=== PATIENT | female | born 1965 | race American Indian/Alaskan Native ===

== ENCOUNTER 2019-08-27 02:50 | Emergency (ER) | payer SELFPAY ==
--- NOTE | 2019-08-27 07:00 | Emergency Department Report ---
ED General Adult HPI - General Chief complaint: Fever Stated complaint: FEVER PUI?: Yes Time Seen by Provider: 08/27/19 06:12 Source: patient, EMS ( EMS documentation not available at time of chart dictation ), RN notes reviewed Mode of arrival: Stretcher Limitations: Other (Patient is disorganized and a poor historian and is not forthcoming) - History of Present Illness Initial comments: This is a 54-year-old female. She is not known to myself previously. Apparently, her past medical history includes COPD, HIV, and schizophrenia. Please note that for the entire history and physical examination, I had on complete personal protective equipment. History is mostly obtained from collateral information from nursing staff. Apparently, the patient was recently seen at [facility] for psychiatric reasons, placed on a 1013, and was scheduled to be transported to [facility] on the aforementioned 1013 for suicidality. Apparently, she had a fever of 101.3 degrees, and was saturating at 92% on room air. Upon my initial evaluation, the patient is sleeping comfortably on her left hand side. She arouses easily, and tells me that she has "side pain" she points to her bilateral lower quadrants indicating where her pain is. She does not describe the nature of her pain. She does not describe exacerbating or relieving factors. The patient will not answer further open-ended questions. She would not comment on the presence of chest pain, shortness of breath, headache, neck pain, or suicidality. She is asking to eat. She is not accompanied by friends or family at this time. No additional information is available at this time. Old medical records are not available at this time. -: unknown Radiation: abdomen Quality: other Consistency: other Improves with: other Worsens with: other Associated Symptoms: other - Related Data Previous Rx's Medication Instructions Recorded Last Taken Type Acetaminophen [Tylenol] 650 mg PO Q6HR PRN #20 capsule 08/27/19 Unknown Rx Albuterol Sulfate [Proair 90 mcg IH Q6HR PRN #1 aer.pw.bas 08/27/19 Unknown Rx Digihaler] Amoxicillin/Potassium Clav 1 each PO BID #19 tablet 08/27/19 Unknown Rx [Augmentin 875-125 Tablet] Ondansetron (Nf) [Zofran TAB] 4 mg PO Q6HR PRN #10 tablet 08/27/19 Unknown Rx Allergies Allergy/AdvReac Type Severity Reaction Status Date / Time No Known Allergies Allergy Unverified 08/27/19 03:24 ED Review of Systems ROS: Stated complaint: FEVER Other details as noted in HPI Comment: Unobtainable due to pts medical conditions (Patient appears to be withdrawn, psychotic and disorganized.) Gastrointestinal: abdominal pain ED Past Medical Hx - Past Medical History Previous Medical History?: Yes Hx Psychiatric Treatment: Yes (Schizophrenia) Hx COPD: Yes Hx HIV: Yes - Surgical History Past Surgical History?: No - Social History Smoking Status: Current Every Day Smoker Substance Use Type: Alcohol, Other - Medications Home Medications: Home Medications Medication Instructions Recorded Confirmed Last Taken Type Acetaminophen [Tylenol] 650 mg PO Q6HR PRN #20 capsule 08/27/19 Unknown Rx Albuterol Sulfate [Proair 90 mcg IH Q6HR PRN #1 aer.pw.bas 08/27/19 Unknown Rx Digihaler] Amoxicillin/Potassium Clav 1 each PO BID #19 tablet 08/27/19 Unknown Rx [Augmentin 875-125 Tablet] Ondansetron (Nf) [Zofran TAB] 4 mg PO Q6HR PRN #10 tablet 08/27/19 Unknown Rx ED Physical Exam - General Limitations: Other (Patient not forthcoming in history. Patient will not answer most open ended her close ended questions) General appearance: in no apparent distress - Head Head exam: Present: atraumatic, normocephalic - Eye Eye exam: Present: normal appearance, EOMI - ENT ENT exam: Present: normal exam, mucous membranes moist, normal external ear exam - Neck Neck exam: Present: normal inspection, full ROM. Absent: tenderness, meningismus - Respiratory Respiratory exam: Present: decreased breath sounds. Absent: respiratory distress, wheezes, rales, rhonchi, stridor - Cardiovascular Cardiovascular Exam: Present: regular rate, normal rhythm, normal heart sounds. Absent: bradycardia, tachycardia, irregular rhythm, systolic murmur, diastolic murmur, rubs, gallop - GI/Abdominal GI/Abdominal exam: Present: soft, normal bowel sounds. Absent: distended, tenderness, guarding, rebound, rigid, pulsatile mass - Extremities Exam Extremities exam: Present: normal inspection, full ROM, other (2+ pulses noted in the bilateral upper and lower extremities. There is no palpable cord. negative Homans sign. Muscular compartments are soft. The pelvis is stable.). Absent: pedal edema, calf tenderness - Back Exam Back exam: Absent: tenderness, CVA tenderness (R), CVA tenderness (L), paraspinal tenderness, vertebral tenderness - Neurological Exam Neurological exam: Present: alert (The patient is awake. The patient moves 4 extremities. There are no meningeal signs. The patient follows some commands. There is no facial droop. The patient does not speak in complete sentences when she elects to answer. Detailed neurologic examination not possible secondary to lack of patient cooperation) - Psychiatric Psychiatric exam: Present: flat affect - Skin Skin exam: Present: warm, dry, intact, normal color. Absent: rash ED Course Vital Signs 08/27/19 08/27/19 08/27/19 03:07 03:12 03:22 Temperature 100.5 F H Pulse Rate 91 H Respiratory 18 20 Rate Blood Pressure 137/88 Blood Pressure [Right] O2 Sat by Pulse 93 94 Oximetry 08/27/19 08/27/19 08/27/19 06:39 14:38 16:15 Temperature 98.6 F 100.4 F H Pulse Rate 77 Respiratory 18 18 Rate Blood Pressure Blood Pressure 116/57 [Right] O2 Sat by Pulse 93 Oximetry 08/27/19 08/27/19 08/27/19 18:56 19:04 21:18 Temperature 99.4 F 99.4 F 98.8 F Pulse Rate 69 Respiratory 18 16 Rate Blood Pressure Blood Pressure 127/68 [Right] O2 Sat by Pulse 97 100 Oximetry - Reevaluation(s) Reevaluation #1: 08/27/19 07:16 Differential diagnosis, including but not limited to: COVID-19, bacteremia, viremia, pneumonia, COPD, intra-abdominal infection, schizophrenia, psychosis Assessment and plan: 54-year-old female who was reportedly recently medically cleared from another emergency room, transported to receiving psychiatric facility, found to be febrile, and borderline hypoxic. Patient febrile here in the emergency room, and also minimally hypoxic. Place patient on 1013, obtain screening labs, x-ray of the chest, noncontrast CT scan of the belly, patient on supplemental oxygen, titrate to 94% on O2 supplementation, obtain psychiatric consultation, and reassess. Patient has no meningeal signs, neck is supple, this is unlikely to be meningitis and/or encephalitis. 08/27/19 12:10 Reevaluation #2: 08/27/19 12:10 Patient resting comfortably at this time, and in no acute distress. She ate a full meal without difficulty. CT scan of the abdomen pelvis shows no pulmonary pathology. CT scan did suggest possible early colitis. She has not had any diarrhea while she is been here. Urinalysis pending. 08/27/19 12:10 Reevaluation #3: 08/27/19 14:51 Laboratory studies are reviewed and appreciated. I contacted our hospital physician, Dr. Luo, to arrange admission, given acute febrile illness. We discussed the patient's history, physical, laboratory studies and imaging studies. He indicates the patient does not meet criteria for admission or hospitalization. I do agree with this, as if the patient were not acutely psychotic and on a 1013, I would discharge her home with oral antibiotics, medications and supportive care, with a plan for self-care and observation. However, given her 1013 status, I cannot clear the patient for psychiatric hospitalization at this time. I also discussed the case with our correctional officer chief, Dr. Sandro Rojas. We discussed the patient's history, physical, pertinent laboratory studies and imaging studies. He authorizes and recommends administratively that the patient may remain in this ER at least overnight, pending results of COVID testing. If patient test positive, we would consider admission for the aforementioned. If patient tests negative, and clinically convalesces well, we would consider the patient suitable for psychiatric placement. Therefore, the patient will remain in this department overnight, pending COVID results. In addition, we will continue maintenance medications. Nursing team has been requested to reconcile patient's medications. Clinically do not suspect colitis, but we will cover with Augmentin. 08/27/19 15:20 COVID test is negative. At this point in time, the patient does not appear to have an immediate medical contraindication to psychiatric hospitalization, consultation and placement, assuming serum aspirin level within normal limits will transfer care to Dr Keagan Veliz to follow up on aspirin level and d/c to psych clearance if negative 08/27/19 15:23 ED Medical Decision Making - Lab Data Result diagrams: 08/27/19 07:24 08/27/19 07:24 Vital Signs 08/27/19 08/27/19 08/27/19 03:07 03:12 03:22 Temperature 100.5 F H Pulse Rate 91 H Respiratory 18 20 Rate Blood Pressure 137/88 Blood Pressure [Right] O2 Sat by Pulse 93 94 Oximetry 08/27/19 06:39 Temperature 98.6 F Pulse Rate 77 Respiratory 18 Rate Blood Pressure Blood Pressure 116/57 [Right] O2 Sat by Pulse 93 Oximetry - EKG Data -: EKG Interpreted by [facility] EKG shows normal: sinus rhythm Rate: normal - EKG Data When compared to previous EKG there are: previous EKG unavailable 08/27/19 10:54 There is no prior EKG available for comparison. Sinus rhythm, 70 bpm, normal axis, normal intervals, poor R wave progression, T wave inversion V2. The EKG is abnormal. The EKG is not a STEMI. No prior is available for comparison. - Radiology Data Radiology results: pending, report reviewed, image reviewed X-ray of the chest is negative for acute disease Print Report Referring Physician: HERMELINDA VITAL Patient Name: ADDIS HESTER Date of : 1965 Sex: Female Report Date: 2019-08-27 Report Status: Finalized Findings [facility] [address] [place] [address] Cat Scan Report Signed Patient: ADDIS HESTER MR#: [id number] : 1965 Acct:[id number] Age/Sex: 54 / F ADM Date: 08/27/19 Loc: ED Attending Dr: Ordering Physician: HERMELINDA VITAL MD Date of Service: 08/27/19 Procedure(s): CT abdomen pelvis wo con Accession Number(s): [id number] cc: HERMELINDA VITAL MD CT ABDOMEN AND PELVIS WITHOUT CONTRAST HISTORY: lower abd pain fever. COMPARISON: None. TECHNIQUE: CT images of the abdomen and pelvis were obtained without administration of intravenous contrast. All CT scans at this location are performed using CT dose reduction for ALARA by means of automated exposure control. FINDINGS: Lungs/bones: There is mild bibasilar atelectasis. Degenerative changes are present in the spine and pelvis with no acute osseous abnormality identified. Abdomen/pelvis: The liver is mildly enlarged with no focal mass identified. The gallbladder, spleen, pancreas, adrenals, right kid roge, and proximal GI tract appear unremarkable. There is a simple cyst arising from the midpole the left kidney. Urinary bladder and reproductive organs are unremarkable with no pelvic free fluid. There is slight circumferential wall thickening along the distal descending colon extending to the proximal sigmoid colon without significant surrounding inflammation. No obstruction or free fluid. The appendix is normal. IMPRESSION: 1. Distal colonic findings as outlined above could represent a very early/mild colitis. No significant diverticular disease. No obstruction or abscess formation. Signer Name: Praveen Khalil MD Signed: 08/27/2019 11:51 AM Workstation Name: [id number] Transcribed By: ANTHONY Dictated By: Praveen Khalil MD Electronically Authenticated By: Praveen Khalil MD Signed Date/Time: 08/27/19 1151 DD/ 1132 TD/TT: Critical Care Time: Yes Critical care time in (mins) excluding proc time.: 35 Critical care attestation.: If time is entered above; I have spent that time in minutes in the direct care of this critically ill patient, excluding procedure time. ED Disposition Clinical Impression: Acute febrile illness, Acute abdominal pain, Psychosis Disposition: DC/TX-70 ANOTHER TYPE HLTHCARE Is pt being admited?: No Does the pt Need Aspirin: No Condition: Stable Additional Instructions: Take the medications as needed and directed. Make certain to self isolate, self quarantine, avoid exposure to the very elderly and very young. Advance diet as tolerated. Wash hands frequently, thoroughly and often. Please follow-up with your primary medical doctor within the next 5 to 7 days. Please return to the emergency room right away with new pain, worsening pain, migration of pain, projectile vomiting, change in mental status, confusion, inability to tolerate liquid feeds, new, worsened or different symptoms not present on the initial emergency room evaluation. Prescriptions: Amoxicillin/Potassium Clav [Augmentin 875-125 Tablet] 1 each PO BID #19 tablet Albuterol Sulfate [Proair Digihaler] 90 mcg IH Q6HR PRN #1 aer.pw.bas PRN Reason: Wheezing Acetaminophen [Tylenol] 650 mg PO Q6HR PRN #20 capsule PRN Reason: Fever >101 Ondansetron (Nf) [Zofran TAB] 4 mg PO Q6HR PRN #10 tablet PRN Reason: Nausea Referrals: NICCI REID MD [Staff Physician] - 3-5 Days
--- NOTE | 2019-08-27 08:00 | XRay Report ---
CHEST 1 VIEW 7:12 AM INDICATION / CLINICAL INFORMATION: Acute febrile illness. COMPARISON: None available. FINDINGS: SUPPORT DEVICES: None. HEART / MEDIASTINUM: The heart size and pulmonary vasculature are normal in LUNGS / PLEURA: No significant pulmonary or pleural abnormality. No pneumothorax. ADDITIONAL FINDINGS: No significant additional findings. IMPRESSION: No acute findings. I see no evidence of pneumonia. Signer Name: Cayden Olmedo MD Signed: 08/27/2019 7:56 AM Workstation Name: [id number]
[2019-08-27 08:14] LABS: Basophils % (Auto) 0.5 % (0.0-1.8); Eosinophils # (Auto) 0.1 K/mm3 (0.0-0.4); Hematocrit 50.8 % (30.3-42.9); Lymphocytes # (Auto) 1.5 K/mm3 (1.2-5.4); Lymphocytes % (Auto) 22.7 % (13.4-35.0); Mean Corpuscular HGB Conc 34 % (30-34); Mean Corpuscular Volume 90 fl (79-97); Monocytes # (Auto) 0.6 K/mm3 (0.0-0.8); Monocytes % (Auto) 8.8 % (0.0-7.3); Platelet Count 202 K/mm3 (140-440); Red Blood Count 5.64 M/mm3 (3.65-5.03); Red Cell Distribution Width 14.8 % (13.2-15.2)
[2019-08-27 08:49] LABS: C-Reactive Protein 2.8 mg/dL (0.00-1.30)
[2019-08-27 09:20] LABS: Alanine Aminotransferase 19 units/L (7-56); Albumin 3.4 g/dL (3.9-5); BUN/Creatinine Ratio 15; Blood Urea Nitrogen 9 mg/dL (7-17); Calcium 8.8 mg/dL (8.4-10.2); Hemolysis Index 5
[2019-08-27] MEDS ORDERED: LORazepam 2 MG/ML VIAL IM PRN (09:43)
[2019-08-27] MEDS ORDERED: HALOPERIDOL LACTATE 5 MG/1 ML INJ IM PRN (09:43)
--- NOTE | 2019-08-27 11:55 | Cat Scan Report ---
CT ABDOMEN AND PELVIS WITHOUT CONTRAST HISTORY: lower abd pain fever. COMPARISON: None. TECHNIQUE: CT images of the abdomen and pelvis were obtained without administration of intravenous co ntrast. All CT scans at this location are performed using CT dose reduction for ALARA by means of au tomated exposure control. FINDINGS: Lungs/bones: There is mild bibasilar atelectasis. Degenerative changes are present in the spine and pelvis with no acute osseous abnormality identified. Abdomen/pelvis: The liver is mildly enlarged with no focal mass identified. The gallbladder, spleen, pancreas, adrenals, right kidney, and proximal GI tract appear unremarkable. There is a simple cyst arising from the midpole the left kidney. Urinary bladder and reproductive organs are unremarkable with no pelvic free fluid. There is slight circumferential wall thickening along the distal descending colon extending to the pr oximal sigmoid colon without significant surrounding inflammation. No obstruction or free fluid. The appendix is normal. IMPRESSION: 1. Distal colonic findings as outlined above could represent a very early/mild colitis. No significan t diverticular disease. No obstruction or abscess formation. Signer Name: Praveen Khalil MD Signed: 08/27/2019 11:51 AM Workstation Name: [id number]
[2019-08-27 13:59] LABS: Mucus,Urine FEW /HPF
[2019-08-27 14:00] LABS: Bilirubin,Urine NEG (Negative); Blood,Urine NEG (Negative); Color,Urine Yellow (Yellow); Protein,Urine <15 mg/dL mg/dL (Negative)
[2019-08-27] MEDS ORDERED: AMOXICILLIN/K CLAV 875/125MG TAB PO ONE (14:38)
[2019-08-27] MEDS ORDERED: ACETAMINOPHEN 325 MG TAB PO PRN (14:38)
[2019-08-27] MEDS ORDERED: ALBUTEROL 2.5 MG/3 ML NEBU IH PRN (14:47)
[2019-08-27] MEDS ORDERED: ONDANSETRON 4 MG ODT TAB PO PRN (14:47)
[2019-08-27] MEDS: AMOXICILLIN/K CLAV 875/125MG TAB PO SCH ×2 (19:04→21:47)
[2019-08-27 21:19] VITALS: BP 127/68
== END 2019-08-27 22:08 | disposition other institution (70) ==
LOC: ED 02:50
DX: B34.9 Viral infection, unspecified (principal); F29 Unspecified psychosis not due to a substance or known physiological condition; R10.9 Unspecified abdominal pain; F20.9 Schizophrenia, unspecified; J44.9 Chronic obstructive pulmonary disease, unspecified; F17.200 Nicotine dependence, unspecified, uncomplicated
CPT/HCPCS: 36415; 71045; 74176; 80053; 81001; 82728; 82947; 83615; 83690; 83735; 84145; 85025; 85379; 86140; 87040; 87086; 93005; 99291; U0003; 80320; G0480

== ENCOUNTER 2019-11-30 14:25 | Emergency (ER) | payer SELFPAY ==
--- NOTE | 2019-11-30 14:37 | Emergency Department Report ---
Blank Doc - Documentation Documentation: This is a 54-year-old female that presents with SI. This initial assessment/diagnostic orders/clinical plan/treatment(s) is/are subject to change based on patient's health status, clinical progression and re- assessment by fellow clinical providers in the ED. Further treatment and workup at subsequent clinical providers discretion. Patient/guardians urged not to elope from the ED as their condition may be serious if not clinically assessed and managed. Initial orders include: 1- Patient sent to MAIN ED for further evaluation and treatment 2- director of intelligence was notified to have patient be brought back [facility]. 3- RN was notified to keep patient as close range and observation until room available 4- Patient presents with substantial risk of imminent harm to self, appears to be so unable to care for his/her own physical health and safety as to create an imminently life-endangering crisis, and has committed/expressed life endangering crisis to self. Due to this and other complaints, patient is put on psych hold.
[2019-11-30 15:10] LABS: Bacteria,Urine 1+ /HPF (Negative); Bilirubin,Urine NEG (Negative); Blood,Urine NEG (Negative); Color,Urine Yellow (Yellow); Mucus,Urine 1+ /HPF; Protein,Urine <15 mg/dL mg/dL (Negative)
[2019-11-30 15:13] LABS: Amphetamine Screen,Urine PRESUMPTIVE NEGATIVE; Benzodiazepines Screen,Urine PRESUMPTIVE NEGATIVE; Cannabinoid Screen,Urine PRESUMPTIVE POSITIVE; Cocaine Screen,Urine PRESUMPTIVE POSITIVE; Methadone Screen,Urine PRESUMPTIVE NEGATIVE; Opiate Screen,Urine PRESUMPTIVE NEGATIVE
[2019-11-30 15:34] LABS: Basophils % (Auto) 0.5 % (0.0-1.8); Eosinophils # (Auto) 0.1 K/mm3 (0.0-0.4); Eosinophils % (Auto) 3.5 % (0.0-4.3); Hematocrit 40.2 % (30.3-42.9); Hemoglobin 13.5 gm/dl (10.1-14.3); Lymphocytes # (Auto) 1.8 K/mm3 (1.2-5.4); Lymphocytes % (Auto) 53.5 % (13.4-35.0); Mean Corpuscular HGB Conc 34 % (30-34); Mean Corpuscular Volume 92 fl (79-97); Monocytes # (Auto) 0.2 K/mm3 (0.0-0.8); Monocytes % (Auto) 7.5 % (0.0-7.3); Platelet Count 223 K/mm3 (140-440); Red Blood Count 4.37 M/mm3 (3.65-5.03); Red Cell Distribution Width 15.1 % (13.2-15.2)
[2019-11-30 15:47] LABS: BUN/Creatinine Ratio 17; Blood Urea Nitrogen 10 mg/dL (7-17); Calcium 8.4 mg/dL (8.4-10.2); Hemolysis Index 12
--- NOTE | 2019-11-30 16:21 | Emergency Department Report ---
HPI - General Chief Complaint: Psych Time Seen by Provider: 11/30/19 14:37 - HPI HPI: Room 13 The patient is a 54-year-old female present with a chief complaint of suicidal ideation. Patient states she has felt suicidal for "a long time." The patient states this morning she put a loaded gun in her mouth. The patient states she also had thoughts of stepping in front of a train. The patient has a history of schizophrenia and states she has not not taken any of her psychiatric medications for the past 3 to 4 weeks. ED Past Medical Hx - Past Medical History Previous Medical History?: Yes Hx Psychiatric Treatment: Yes (Schizophrenia) Hx COPD: Yes Hx HIV: Yes - Surgical History Past Surgical History?: No - Family History Family history: no significant - Social History Smoking Status: Heavy Tobacco Smoker (2 packs/day) Substance Use Type: Alcohol (Daily), Cocaine (Crack) - Medications Home Medications: Home Medications Medication Instructions Recorded Confirmed Last Taken Type Acetaminophen [Tylenol] 650 mg PO Q6HR PRN #20 capsule 08/27/19 Unknown Rx Albuterol Sulfate [Proair 90 mcg IH Q6HR PRN #1 aer.pw.bas 08/27/19 Unknown Rx Digihaler] Amoxicillin/Potassium Clav 1 each PO BID #19 tablet 08/27/19 Unknown Rx [Augmentin 875-125 Tablet] Ondansetron (Nf) [Zofran TAB] 4 mg PO Q6HR PRN #10 tablet 08/27/19 Unknown Rx ED Review of Systems ROS: Stated complaint: SUICIDAL/PUT GUN IN MOUTH Other details as noted in HPI Constitutional: no symptoms reported Respiratory: no symptoms reported Psychiatric: suicidal thoughts Physical Exam - Physical Exam Vital Signs: Vital Signs 11/30/19 14:38 Temperature 98.1 F Pulse Rate 76 Respiratory 18 Rate Blood Pressure 118/78 O2 Sat by Pulse 93 Oximetry Physical Exam: GENERAL: The patient is well-developed well-nourished female lying on stretcher not appearing to be in acute distress. Flat affect HEENT: Normocephalic. Atraumatic. Extraocular motions are intact. Patient has moist mucous membranes. NECK: Supple. Trachea midline CHEST/LUNGS: Clear to auscultation. There is no respiratory distress noted. HEART/CARDIOVASCULAR: Regular. There is no tachycardia. There is no gallop rub or murmur. ABDOMEN: Abdomen is soft, nontender. Patient has normal bowel sounds. There is no abdominal distention. SKIN: There is no rash. There is no edema. There is no diaphoresis. NEURO: The patient is awake, alert, and oriented. The patient is cooperative. The patient has normal speech MUSCULOSKELETAL: There is no evidence of acute injury. ED Course Vital Signs 11/30/19 14:38 Temperature 98.1 F Pulse Rate 76 Respiratory 18 Rate Blood Pressure 118/78 O2 Sat by Pulse 93 Oximetry ED Medical Decision Making - Lab Data Result diagrams: 11/30/19 14:58 11/30/19 14:58 Laboratory Tests 11/30/19 11/30/19 11/30/19 14:56 14:56 14:58 WBC 3.3 L RBC 4.37 Hgb 13.5 Hct 40.2 MCV 92 MCH 31 MCHC 34 RDW 15.1 Plt Count 223 Lymph % (Auto) 53.5 H [place] % (Auto) 7.5 H Eos % (Auto) 3.5 Baso % (Auto) 0.5 Lymph # (Auto) 1.8 [place] # (Auto) 0.2 Eos # (Auto) 0.1 Baso # (Auto) 0.0 Seg Neutrophils % 35.0 L Seg Neutrophils # 1.2 L Sodium Potassium Chloride Carbon Dioxide Anion Gap BUN Creatinine Estimated GFR BUN/Creatinine Ratio Glucose Calcium Urine Color Yellow Urine Turbidity Clear Urine pH 5.0 Ur Specific [place] 1.023 Urine Protein <15 mg/dl Urine Glucose (UA) Neg Urine Ketones Neg Urine Blood Neg Urine Nitrite Neg Urine Bilirubin Neg Urine Urobilinogen 2.0 Ur Leukocyte Esterase Sm Urine WBC (Auto) 5.0 Urine RBC (Auto) 2.0 U Epithel Cells (Auto) 3.0 Urine Bacteria (Auto) 1+ Urine Mucus 1+ Salicylates Urine Opiates Screen Presumptive negative Urine Methadone Screen Presumptive negative Acetaminophen Ur Barbiturates Screen Presumptive negative Ur Phencyclidine Scrn Presumptive negative Ur Amphetamines Screen Presumptive negative U Benzodiazepines Scrn Presumptive negative Urine Cocaine Screen Presumptive positive U Marijuana (THC) Screen Presumptive positive Drugs of Abuse Note Disclamer Plasma/Serum Alcohol 11/30/19 11/30/19 11/30/19 14:58 14:58 14:58 WBC RBC Hgb Hct MCV MCH MCHC RDW Plt Count Lymph % (Auto) [place] % (Auto) Eos % (Auto) Baso % (Auto) Lymph # (Auto) [place] # (Auto) Eos # (Auto) Baso # (Auto) Seg Neutrophils % Seg Neutrophils # Sodium 138 Potassium 3.9 Chloride 101.0 Carbon Dioxide 28 Anion Gap 13 BUN 10 Creatinine 0.6 Estimated GFR > 60 BUN/Creatinine Ratio 17 Glucose 74 Calcium 8.4 Urine Color Urine Turbidity Urine pH Ur Specific [place] Urine Protein Urine Glucose (UA) Urine Ketones Urine Blood Urine Nitrite Urine Bilirubin Urine Urobilinogen Ur Leukocyte Esterase Urine WBC (Auto) Urine RBC (Auto) U Epithel Cells (Auto) Urine Bacteria (Auto) Urine Mucus Salicylates < 0.3 L Urine Opiates Screen Urine Methadone Screen Acetaminophen 5.0 L Ur Barbiturates Screen Ur Phencyclidine Scrn Ur Amphetamines Screen U Benzodiazepines Scrn Urine Cocaine Screen U Marijuana (THC) Screen Drugs of Abuse Note Plasma/Serum Alcohol 11/30/19 14:58 WBC RBC Hgb Hct MCV MCH MCHC RDW Plt Count Lymph % (Auto) [place] % (Auto) Eos % (Auto) Baso % (Auto) Lymph # (Auto) [place] # (Auto) Eos # (Auto) Baso # (Auto) Seg Neutrophils % Seg Neutrophils # Sodium Potassium Chloride Carbon Dioxide Anion Gap BUN Creatinine Estimated GFR BUN/Creatinine Ratio Glucose Calcium Urine Color Urine Turbidity Urine pH Ur Specific [place] Urine Protein Urine Glucose (UA) Urine Ketones Urine Blood Urine Nitrite Urine Bilirubin Urine Urobilinogen Ur Leukocyte Esterase Urine WBC (Auto) Urine RBC (Auto) U Epithel Cells (Auto) Urine Bacteria (Auto) Urine Mucus Salicylates Urine Opiates Screen Urine Methadone Screen Acetaminophen Ur Barbiturates Screen Ur Phencyclidine Scrn Ur Amphetamines Screen U Benzodiazepines Scrn Urine Cocaine Screen U Marijuana (THC) Screen Drugs of Abuse Note Plasma/Serum Alcohol < 0.01 - Differential Diagnosis Suicidal ideation, schizophrenia Critical care attestation.: If time is entered above; I have spent that time in minutes in the direct care of this critically ill patient, excluding procedure time. ED Disposition Clinical Impression: Suicidal ideation, Schizophrenia Disposition: DC/TX-65 PSY HOSP/PSY UNIT Is pt being admited?: No Does the pt Need Aspirin: No Condition: Stable Time of Disposition: 16:10 (Awaiting acceptance)
--- NOTE | 2019-12-01 10:23 | Consultation ---
History of Present Illness - Reason for Consult Consult date: 12/01/19 Reason for consult: SI with plan - History of Present Psychiatric Illness Raffaele Alcantar is a 54y/o female who presented to the ER for suicidal ideation. The patient is a/o x 3. She makes poor eye contact. She is calm and cooperative. The patient states "I was trying to take my life." She says "I put a loaded gun in my mouth." She says she suffers from "depression." When asked was she currently suicidal, the patient replies "yes, what I got to live for." The patient states, "I'm homeless and I just don't feel the need to live." She admits to using "cocaine, marijuana and a pint of alcohol daily." The patient says, "I've started having the shakes." She then raises her hand up to show me that it was trembling. She then says, "I'm having pain in my stomach too." The patient states she normally takes "abilify and remeron but been off for a few weeks." The patient denies hallucinations of any kind. PAST PSYCHIATRIC HISTORY Diagnoses: depression and anxiety Suicide attempts or Self-harm behavior: Yes Prior psychiatric hospitalizations: Yes Substance Abuse history: cocaine, marijuana and alcohol Previous psychiatric medications tried: abilify and remeron Outpatient treatment: not recently PAST MEDICAL HISTORY: None reported Family Psychiatric History: None reported or documented SOCIAL HISTORY Marital Status: Single Living Arrangements: Homeless Employment Status: Unemployed Access to guns/weapons: Yes Education: History of Abuse: Denies Legal History: Denies EVIEW OF SYSTEMS Constitutional: Negative for weight loss ENT: Negative for stridor Respiratory: Negative for cough or hemoptysis All other systems reviewed and are negative MENTAL STATUS EXAMINATION General Appearance and Behavior: Age appropriate, wearing appropriate clothes, poor eye contact, cooperative Mood: "depressed" Affect and affective range: congruent with mood Thought Process: logical Thought Content: depression Speech: Normal volume, Regular rate and rhythm Suicidal Ideation: Yes Homicidal Ideation: Denies Homicidal Hallucinations: denies Delusions: None elicited Impulse Control: normal Insight and Judgment: Limited Memory/Cognition: Limited Attention: Normal Orientation: Alert, oriented Assessment (1) Major Depressive Disorder (2) Cocaine Use Disorder (2) Substance Induced Mood Disorder Plan Start Remeron 15mg po qhs Start Abilify 5mg po daily Start Depakote DR 125mg po BID Sitter: Defer to primary Medical: Per primary Disposition: Recommend acute inpatient treatment Will follow. Thank you for this consult. Medications and Allergies Allergies Allergy/AdvReac Type Severity Reaction Status Date / Time No Known Allergies Allergy Unverified 08/27/19 03:24 Home Medications Medication Instructions Recorded Confirmed Last Taken Type Acetaminophen [Tylenol] 650 mg PO Q6HR PRN #20 capsule 08/27/19 11/30/19 Unknown Rx Albuterol Sulfate [Proair 90 mcg IH Q6HR PRN #1 aer.pw.bas 08/27/19 11/30/19 Unknown Rx Digihaler] Amoxicillin/Potassium Clav 1 each PO BID #19 tablet 08/27/19 11/30/19 Unknown Rx [Augmentin 875-125 Tablet] Ondansetron (Nf) [Zofran TAB] 4 mg PO Q6HR PRN #10 tablet 08/27/19 11/30/19 Unknown Rx Mental Status Exam - Vital signs Last Vital Signs Temp 97.9 F 12/01/19 08:35 Pulse 63 12/01/19 08:35 Resp 18 12/01/19 08:35 BP 132/69 12/01/19 08:35 Pulse Ox 100 12/01/19 08:35 Results Result Diagrams: 11/30/19 14:58 11/30/19 14:58 Abnormal lab results 11/30/19 11/30/19 11/30/19 Range/Units 14:58 14:58 14:58 WBC 3.3 L (4.5-11.0) K/mm3 Lymph % (Auto) 53.5 H (13.4-35.0) % [place] % (Auto) 7.5 H (0.0-7.3) % Seg Neutrophils % 35.0 L (40.0-70.0) % Seg Neutrophils # 1.2 L (1.8-7.7) K/mm3 Salicylates < 0.3 L (2.8-20.0) mg/dL Acetaminophen 5.0 L (10.0-30.0) ug/mL All other labs normal.
[2019-12-01] MEDS ORDERED: chlordiazePOXIDE 25 MG CAP PO PRN ×2 (10:26)
[2019-12-01] MEDS ORDERED: LORazepam 2 MG/ML VIAL IM PRN (10:26)
[2019-12-01] MEDS: FOLIC ACID 1 MG TAB PO SCH (12:20)
[2019-12-01] MEDS: DIVALPROEX DR 125 MG TAB PO SCH ×2 (12:20→22:04)
[2019-12-01] MEDS: ARIPiprazole 5 MG TAB PO SCH (12:20)
--- NOTE | 2019-12-01 20:20 | Event Note ---
Date: 12/01/19 Nursing team has brought this patient to my attention as she is complaining of left lower quadrant pain. I saw this patient in August of this year, she had a CAT scan of her abdomen pelvis which suggested a possible mild colitis. Upon examination, patient lying on the right lateral decubitus position, and is minimally tender in her left lower quadrant. We will give Tylenol for pain, check a CT scan of the abdomen pelvis without IV contrast, and reassess. Vital Signs 11/30/19 11/30/19 12/01/19 14:38 20:30 02:08 Temperature 98.1 F 98.5 F 98.3 F Pulse Rate 76 71 73 Respiratory 18 16 16 Rate Blood Pressure 118/78 Blood Pressure 110/69 118/66 [Right] O2 Sat by Pulse 93 95 97 Oximetry 12/01/19 12/01/19 12/01/19 08:35 13:51 19:51 Temperature 97.9 F 98.7 F Pulse Rate 63 62 Respiratory 18 18 16 Rate Blood Pressure 151/76 Blood Pressure 132/69 [Right] O2 Sat by Pulse 100 100 94 Oximetry Lab Results 11/30/19 11/30/19 11/30/19 Range/Units 14:56 14:56 14:58 WBC 3.3 L (4.5-11.0) K/mm3 RBC 4.37 (3.65-5.03) M/mm3 Hgb 13.5 (10.1-14.3) gm/dl Hct 40.2 (30.3-42.9) % MCV 92 (79-97) fl MCH 31 (28-32) pg MCHC 34 (30-34) % RDW 15.1 (13.2-15.2) % Plt Count 223 (140-440) K/mm3 Lymph % (Auto) 53.5 H (13.4-35.0) % Divide % (Auto) 7.5 H (0.0-7.3) % Eos % (Auto) 3.5 (0.0-4.3) % Baso % (Auto) 0.5 (0.0-1.8) % Lymph # (Auto) 1.8 (1.2-5.4) K/mm3 Divide # (Auto) 0.2 (0.0-0.8) K/mm3 Eos # (Auto) 0.1 (0.0-0.4) K/mm3 Baso # (Auto) 0.0 (0.0-0.1) K/mm3 Seg Neutrophils % 35.0 L (40.0-70.0) % Seg Neutrophils # 1.2 L (1.8-7.7) K/mm3 Sodium (137-145) mmol/L Potassium (3.6-5.0) mmol/L Chloride (98-107) mmol/L Carbon Dioxide (22-30) mmol/L Anion Gap mmol/L BUN (7-17) mg/dL Creatinine (0.6-1.2) mg/dL Estimated GFR ml/min BUN/Creatinine Ratio % Glucose (65-100) mg/dL Calcium (8.4-10.2) mg/dL Urine Color Yellow (Yellow) Urine Turbidity Clear (Clear) Urine pH 5.0 (5.0-7.0) Ur Specific [place] 1.023 (1.003-1.030) Urine Protein <15 mg/dl (Negative) mg/dL Urine Glucose (UA) Neg (Negative) mg/dL Urine Ketones Neg (Negative) mg/dL Urine Blood Neg (Negative) Urine Nitrite Neg (Negative) Urine Bilirubin Neg (Negative) Urine Urobilinogen 2.0 (<2.0) mg/dL Ur Leukocyte Esterase Sm (Negative) Urine WBC (Auto) 5.0 (0.0-6.0) /HPF Urine RBC (Auto) 2.0 (0.0-6.0) /HPF U Epithel Cells (Auto) 3.0 (0-13.0) /HPF Urine Bacteria (Auto) 1+ (Negative) /HPF Urine Mucus 1+ /HPF Salicylates (2.8-20.0) mg/dL Urine Opiates Screen Presumptive negative Urine Methadone Screen Presumptive negative Acetaminophen (10.0-30.0) ug/mL Ur Barbiturates Screen Presumptive negative Ur Phencyclidine Scrn Presumptive negative Ur Amphetamines Screen Presumptive negative U Benzodiazepines Scrn Presumptive negative Urine Cocaine Screen Presumptive positive U Marijuana (THC) Screen Presumptive positive Drugs of Abuse Note Disclamer Plasma/Serum Alcohol (0-0.07) % 11/30/19 11/30/19 11/30/19 Range/Units 14:58 14:58 14:58 WBC (4.5-11.0) K/mm3 RBC (3.65-5.03) M/mm3 Hgb (10.1-14.3) gm/dl Hct (30.3-42.9) % MCV (79-97) fl MCH (28-32) pg MCHC (30-34) % RDW (13.2-15.2) % Plt Count (140-440) K/mm3 Lymph % (Auto) (13.4-35.0) % Divide % (Auto) (0.0-7.3) % Eos % (Auto) (0.0-4.3) % Baso % (Auto) (0.0-1.8) % Lymph # (Auto) (1.2-5.4) K/mm3 Divide # (Auto) (0.0-0.8) K/mm3 Eos # (Auto) (0.0-0.4) K/mm3 Baso # (Auto) (0.0-0.1) K/mm3 Seg Neutrophils % (40.0-70.0) % Seg Neutrophils # (1.8-7.7) K/mm3 Sodium 138 (137-145) mmol/L Potassium 3.9 (3.6-5.0) mmol/L Chloride 101.0 (98-107) mmol/L Carbon Dioxide 28 (22-30) mmol/L Anion Gap 13 mmol/L BUN 10 (7-17) mg/dL Creatinine 0.6 (0.6-1.2) mg/dL Estimated GFR > 60 ml/min BUN/Creatinine Ratio 17 % Glucose 74 (65-100) mg/dL Calcium 8.4 (8.4-10.2) mg/dL Urine Color (Yellow) Urine Turbidity (Clear) Urine pH (5.0-7.0) Ur Specific [place] (1.003-1.030) Urine Protein (Negative) mg/dL Urine Glucose (UA) (Negative) mg/dL Urine Ketones (Negative) mg/dL Urine Blood (Negative) Urine Nitrite (Negative) Urine Bilirubin (Negative) Urine Urobilinogen (<2.0) mg/dL Ur Leukocyte Esterase (Negative) Urine WBC (Auto) (0.0-6.0) /HPF Urine RBC (Auto) (0.0-6.0) /HPF U Epithel Cells (Auto) (0-13.0) /HPF Urine Bacteria (Auto) (Negative) /HPF Urine Mucus /HPF Salicylates < 0.3 L (2.8-20.0) mg/dL Urine Opiates Screen Urine Methadone Screen Acetaminophen 5.0 L (10.0-30.0) ug/mL Ur Barbiturates Screen Ur Phencyclidine Scrn Ur Amphetamines Screen U Benzodiazepines Scrn Urine Cocaine Screen U Marijuana (THC) Screen Drugs of Abuse Note Plasma/Serum Alcohol (0-0.07) % 11/30/19 Range/Units 14:58 WBC (4.5-11.0) K/mm3 RBC (3.65-5.03) M/mm3 Hgb (10.1-14.3) gm/dl Hct (30.3-42.9) % MCV (79-97) fl MCH (28-32) pg MCHC (30-34) % RDW (13.2-15.2) % Plt Count (140-440) K/mm3 Lymph % (Auto) (13.4-35.0) % Divide % (Auto) (0.0-7.3) % Eos % (Auto) (0.0-4.3) % Baso % (Auto) (0.0-1.8) % Lymph # (Auto) (1.2-5.4) K/mm3 [place] # (Auto) (0.0-0.8) K/mm3 Eos # (Auto) (0.0-0.4) K/mm3 Baso # (Auto) (0.0-0.1) K/mm3 Seg Neutrophils % (40.0-70.0) % Seg Neutrophils # (1.8-7.7) K/mm3 Sodium (137-145) mmol/L Potassium (3.6-5.0) mmol/L Chloride (98-107) mmol/L Carbon Dioxide (22-30) mmol/L Anion Gap mmol/L BUN (7-17) mg/dL Creatinine (0.6-1.2) mg/dL Estimated GFR ml/min BUN/Creatinine Ratio % Glucose (65-100) mg/dL Calcium (8.4-10.2) mg/dL Urine Color (Yellow) Urine Turbidity (Clear) Urine pH (5.0-7.0) Ur Specific [place] (1.003-1.030) Urine Protein (Negative) mg/dL Urine Glucose (UA) (Negative) mg/dL Urine Ketones (Negative) mg/dL Urine Blood (Negative) Urine Nitrite (Negative) Urine Bilirubin (Negative) Urine Urobilinogen (<2.0) mg/dL Ur Leukocyte Esterase (Negative) Urine WBC (Auto) (0.0-6.0) /HPF Urine RBC (Auto) (0.0-6.0) /HPF U Epithel Cells (Auto) (0-13.0) /HPF Urine Bacteria (Auto) (Negative) /HPF Urine Mucus /HPF Salicylates (2.8-20.0) mg/dL Urine Opiates Screen Urine Methadone Screen Acetaminophen (10.0-30.0) ug/mL Ur Barbiturates Screen Ur Phencyclidine Scrn Ur Amphetamines Screen U Benzodiazepines Scrn Urine Cocaine Screen U Marijuana (THC) Screen Drugs of Abuse Note Plasma/Serum Alcohol < 0.01 (0-0.07) % December 01, 2019, at 9:[address] scan abdomen pelvis suggests constipation, and possible cystitis. Urinalysis does suggest pyuria and bacteriuria. Macrobid ordered. Patient resting comfortably on her stretcher at this time, and she does not appear to be in any acute distress. Patient remains medically suitable for psychiatric placement, consultation and evaluation at this time, she does not appear to have an emergent medical condition at this time which would preclude psychiatric placement.
--- NOTE | 2019-12-01 21:22 | Cat Scan Report ---
CT ABDOMEN AND PELVIS WITHOUT CONTRAST INDICATION / CLINICAL INFORMATION: llq pain. TECHNIQUE: Axial CT images were obtained through the abdomen and pelvis without IV contrast. All CT scans at [facility] location are performed using CT dose reduction for ALARA by means of automated exposure control. COMPARISON: CT abdomen/pelvis dated 08/27/2019. FINDINGS: LOWER CHEST: No significant abnormality. LIVER: No significant abnormality. GALLBLADDER: No significant abnormality. PANCREAS: No significant abnormality. SPLEEN: No significant abnormality. ADRENALS: No significant abnormality. KIDNEYS / URETERS: No significant abnormality. URINARY BLADDER: Mild circumferential urinary bladder wall thickening along with inflammatory change suggestive of cystitis. REPRODUCTIVE ORGANS: No significant abnormality. STOMACH / SMALL BOWEL: No significant abnormality. COLON: There is a large ascending colonic stool burden. APPENDIX: No significant abnormality. PERITONEUM: No free fluid. No free air. No fluid collection. LYMPH NODES: There are prominent bilateral inguinal and pelvic sidewall lymph nodes, likely reactive. AORTA / ARTERIES: No significant abnormality. IVC / VEINS: No significant abnormality. SKELETAL SYSTEM: No significant abnormality. ADDITIONAL FINDINGS: None. IMPRESSION: 1. Circumferential urinary bladder wall thickening and inflammatory change is suggestive of a cystiti s. Correlation with urinalysis is recommended. 2. Large ascending colonic stool burden. 3. Prominent bilateral inguinal and pelvic sidewall lymph nodes are likely reactive in etiology. Signer Name: Justino Cross MD Signed: 12/01/2019 9:17 PM Workstation Name: [id number]
[2019-12-01] MEDS ORDERED: MIRTAZAPINE 15 MG TAB PO SCH (22:00)
[2019-12-01] MEDS: NITROFURANTOIN MONOHYD/M-CRYST 100 MG CAP PO SCH (22:03)
[2019-12-01] MEDS: ACETAMINOPHEN 325 MG TAB PO PRN (23:44)
[2019-12-02 05:02] VITALS: BP 127/88
[2019-12-02] MEDS: ACETAMINOPHEN 325 MG TAB PO PRN (05:04)
--- NOTE | 2019-12-02 10:51 | Progress Note ---
Subjective - Reason for Consult Consult date: 12/02/19 Reason for consult: SI - Chief Complaint Chief complaint: During my interview with the patient this morning, she is lying down asleep. She easily arouses. She is oriented x 3. The patient describes her mood as "okay." She is complaining of side pain. She denies SI/HI. She also denies hallucinations of any kind, stating "no, I'm not having any of that this morning." REVIEW OF SYSTEMS Constitutional: Negative for weight loss ENT: Negative for stridor Respiratory: Negative for cough or hemoptysis All other systems reviewed and are negative MENTAL STATUS EXAMINATION General Appearance and Behavior: Age appropriate, wearing appropriate clothes, fair eye contact, cooperative Mood: "okay" Affect and affective range: congruent with mood Thought Process: logical Thought Content: none Speech: Normal volume, Regular rate and rhythm Suicidal Ideation: Denies Homicidal Ideation: Denies Hallucinations: denies Delusions: None elicited Impulse Control: normal Insight and Judgment: Limited Memory/Cognition: Limited Attention: Normal Orientation: Alert, oriented Assessment (1) Major Depressive Disorder (2) Cocaine Use Disorder (2) Substance Induced Mood Disorder Plan D/c 1013 Remeron 15mg po qhs Abilify 5mg po daily Depakote DR 125mg po BID Sitter: Defer to primary Medical: Per primary Disposition: Do not Recommend acute inpatient treatment. The patient may discharge home once medically clear. She understands that if thoughts of self harm to arise again, she is to seek immediate assistance including the crisis hotline, 911 and ER. The receiving supervisor is to further implement safety plan, give resources for outpatient psychiatry, cognitive behavioral therapy, drug rehab and correction/group homes. Give transportation pass if needed. The patient is to abstain from all illicit drug use. The patient is to follow up with psych and primary in 7 to 14 days upon discharge. Will sign off. Thank you for this consult. Mental Status Exam - Vital signs Last Vital Signs Temp 98.3 F 12/02/19 02:28 Pulse 52 L 12/02/19 05:00 Resp 17 12/02/19 06:04 BP 127/88 12/02/19 05:00 Pulse Ox 94 12/02/19 05:00
[2019-12-02] MEDS: FOLIC ACID 1 MG TAB PO SCH (10:58)
[2019-12-02] MEDS: DIVALPROEX DR 125 MG TAB PO SCH (10:58)
[2019-12-02] MEDS: ARIPiprazole 5 MG TAB PO SCH (10:59)
[2019-12-02] MEDS: NITROFURANTOIN MONOHYD/M-CRYST 100 MG CAP PO SCH (11:03)
== END 2019-12-02 12:27 | disposition home or self-care (01) ==
LOC: ED 14:25
DX: F20.89 Other schizophrenia (principal); J44.9 Chronic obstructive pulmonary disease, unspecified; F17.210 Nicotine dependence, cigarettes, uncomplicated; F14.10 Cocaine abuse, uncomplicated
CPT/HCPCS: 36415; 74176; 80048; 80307; 80320; 81001; 85025; G0480

== ENCOUNTER 2020-07-04 21:49 | Emergency (ER) | payer SELFPAY ==
[2020-07-04 23:23] LABS: Basophils % (Auto) 0.7 % (0.0-1.8); Eosinophils # (Auto) 0.1 K/mm3 (0.0-0.4); Eosinophils % (Auto) 2.5 % (0.0-4.3); Hematocrit 48.6 % (30.3-42.9); Hemoglobin 16.7 gm/dl (10.1-14.3); Lymphocytes # (Auto) 1.6 K/mm3 (1.2-5.4); Lymphocytes % (Auto) 43.6 % (13.4-35.0); Mean Corpuscular HGB Conc 34 % (30-34); Mean Corpuscular Volume 92 fl (79-97); Monocytes # (Auto) 0.4 K/mm3 (0.0-0.8); Monocytes % (Auto) 10.5 % (0.0-7.3); Platelet Count 188 K/mm3 (140-440); Red Cell Distribution Width 15.7 % (13.2-15.2)
[2020-07-04 23:42] LABS: BUN/Creatinine Ratio 21; Blood Urea Nitrogen 17 mg/dL (7-17); Calcium 8.9 mg/dL (8.4-10.2); Hemolysis Index 5
--- NOTE | 2020-07-04 23:50 | Emergency Department Report ---
ED Psych HPI - General Chief Complaint: Psych Stated Complaint: SUICIDAL/HEARING VOICES/SOB Time Seen by Provider: 07/04/20 23:42 Source: patient Mode of arrival: Ambulatory - History of Present Illness Initial Comments: Patient is 55 years old female with history of schizophrenia. Patient presented to the ER complaining of hearing voices asking her to kill herself by jumping in front of [employer]. Patient stated that she is seeing female but following her everywhere she go. Patient stated that symptoms been going on for 2 months. MD Complaint: suicidal ideation, feels depressed Associated Psychiatric Symptoms: depression, suicidal ideation, auditory hallucinations, visual hallucinations History of same: Yes Quality: constant Associated Symptoms: denies other symptoms If Self Harm: admits thoughts of, has plan, self-inflicted trauma - Related Data Previous Rx's Medication Instructions Recorded Last Taken Type Acetaminophen [Tylenol] 650 mg PO Q6HR PRN #20 capsule 08/27/19 Unknown Rx Albuterol Sulfate [Proair 90 mcg IH Q6HR PRN #1 aer.pw.bas 08/27/19 Unknown Rx Digihaler] Amoxicillin/Potassium Clav 1 each PO BID #19 tablet 08/27/19 Unknown Rx [Augmentin 875-125 Tablet] Ondansetron (Nf) [Zofran TAB] 4 mg PO Q6HR PRN #10 tablet 08/27/19 Unknown Rx ARIPiprazole [Abilify TAB] 5 mg PO DAILY #30 tab 12/02/[address] [DepaKOTE DR] 125 mg PO BID #30 tablet 12/02/19 Unknown Rx Mirtazapine [Remeron 15mg TAB] 15 mg PO QHS #30 tablet 12/02/19 Unknown Rx Allergies Allergy/AdvReac Type Severity Reaction Status Date / Time No Known Allergies Allergy Unverified 08/27/19 03:24 ED Review of Systems ROS: Stated complaint: SUICIDAL/HEARING VOICES/SOB Other details as noted in HPI Comment: All other systems reviewed and negative Constitutional: denies: chills, fever Respiratory: denies: cough, shortness of breath Cardiovascular: denies: chest pain Gastrointestinal: denies: abdominal pain, nausea Psychiatric: depression, auditory hallucinations, visual hallucinations, suicidal thoughts ED Past Medical Hx - Past Medical History Previous Medical History?: Yes Hx Psychiatric Treatment: Yes (Schizophrenia) Hx COPD: Yes Hx HIV: Yes - Surgical History Past Surgical History?: No - Social History Smoking Status: Former Smoker Substance Use Type: Alcohol, Cocaine, Marijuana - Medications Home Medications: Home Medications Medication Instructions Recorded Confirmed Last Taken Type Acetaminophen [Tylenol] 650 mg PO Q6HR PRN #20 capsule 08/27/19 11/30/19 Unknown Rx Albuterol Sulfate [Proair 90 mcg IH Q6HR PRN #1 aer.pw.bas 08/27/19 11/30/19 Unknown Rx Digihaler] Amoxicillin/Potassium Clav 1 each PO BID #19 tablet 08/27/19 11/30/19 Unknown Rx [Augmentin 875-125 Tablet] Ondansetron (Nf) [Zofran TAB] 4 mg PO Q6HR PRN #10 tablet 08/27/19 11/30/19 Unknown Rx ARIPiprazole [Abilify TAB] 5 mg PO DAILY #30 tab 12/02/[address] [DepaKOTE DR] 125 mg PO BID #30 tablet 12/02/19 Unknown Rx Mirtazapine [Remeron 15mg TAB] 15 mg PO QHS #30 tablet 12/02/19 Unknown Rx ED Physical Exam - General Limitations: No Limitations General appearance: alert, in no apparent distress - Head Head exam: Present: atraumatic, normocephalic, normal inspection - Eye Eye exam: Present: normal appearance, PERRL - ENT ENT exam: Present: normal exam, normal orophraynx, mucous membranes moist - Neck Neck exam: Present: normal inspection, full ROM. Absent: tenderness, meningismus - Respiratory Respiratory exam: Present: normal lung sounds bilaterally - Cardiovascular Cardiovascular Exam: Present: regular rate, normal rhythm, normal heart sounds - GI/Abdominal GI/Abdominal exam: Present: soft, normal bowel sounds. Absent: distended, tenderness, guarding, rebound, rigid, organomegaly, mass, bruit, pulsatile mass, hernia - Extremities Exam Extremities exam: Present: normal inspection, full ROM, normal capillary refill. Absent: pedal edema, calf tenderness - Back Exam Back exam: Present: normal inspection, full ROM. Absent: CVA tenderness (R), CVA tenderness (L) - Neurological Exam Neurological exam: Present: alert, oriented X3, CN II-XII intact, normal gait, reflexes normal. Absent: motor sensory deficit - Psychiatric Psychiatric exam: Present: flat affect, suicidal ideation. Absent: agitated - Skin Skin exam: Present: warm, intact, normal color ED Course Vital Signs 07/04/20 07/05/20 07/05/20 22:19 01:16 09:01 Temperature 97.2 F L 98 F Pulse Rate 81 67 Respiratory 18 18 20 Rate Blood Pressure 141/79 Blood Pressure 152/88 [Left] O2 Sat by Pulse 100 97 Oximetry 07/05/20 07/05/20 07/06/20 20:02 20:47 02:00 Temperature 98.6 F 98.2 F Pulse Rate 52 L 59 L Respiratory 16 18 16 Rate Blood Pressure Blood Pressure 143/75 116/65 [Left] O2 Sat by Pulse 98 97 97 Oximetry 07/06/20 07/06/20 07/07/20 11:08 20:10 02:16 Temperature 98.5 F 99.2 F 98.7 F Pulse Rate 66 55 L 52 L Respiratory 20 16 16 Rate Blood Pressure Blood Pressure 150/86 126/60 126/80 [Left] O2 Sat by Pulse 97 96 96 Oximetry 07/07/20 07/07/20 04:48 09:46 Temperature 97.6 F Pulse Rate 64 Respiratory 18 20 Rate Blood Pressure Blood Pressure 117/72 [Left] O2 Sat by Pulse 98 97 Oximetry ED Medical Decision Making - Lab Data Result diagrams: 07/04/20 22:46 07/04/20 22:46 - Medical Decision Making Patient is 55 years old female with history of schizophrenia. Patient presented to the ER complaining of hearing voices asking her to kill herself by jumping in front of [employer]. Patient stated that she is seeing female but following her everywhere she go. Patient stated that symptoms been going on for 2 months. Labs reviewed and is unremarkable except for positive UDS for cocaine. Patient is medically cleared to be evaluated by our psychiatric team. Critical care attestation.: If time is entered above; I have spent that time in minutes in the direct care of this critically ill patient, excluding procedure time. ED Disposition Clinical Impression: Suicidal ideation, Cocaine abuse Disposition: [id number]/TX-[id number] PSY HOSP/PSY UNIT Is pt being admited?: No Condition: Stable Referrals: PRIMARY CARE, [Primary Care Provider] - 3-5 Days
[2020-07-05 00:08] LABS: Bacteria,Urine 1+ /HPF (Negative); Bilirubin,Urine NEG (Negative); Blood,Urine NEG (Negative); Color,Urine Yellow (Yellow); Mucus,Urine 2+ /HPF
[2020-07-05 00:15] LABS: Amphetamine Screen,Urine PRESUMPTIVE NEGATIVE; Benzodiazepines Screen,Urine PRESUMPTIVE NEGATIVE; Cannabinoid Screen,Urine PRESUMPTIVE POSITIVE; Cocaine Screen,Urine PRESUMPTIVE POSITIVE; Methadone Screen,Urine PRESUMPTIVE NEGATIVE; Opiate Screen,Urine PRESUMPTIVE NEGATIVE
--- NOTE | 2020-07-05 10:54 | Consultation ---
History of Present Illness - Reason for Consult Consult date: 07/05/20 Reason for consult: MHE Requesting physician: ALEKSANDER LUNDBERG - History of Present Psychiatric Illness Per ED Provider: Patient is 55 years old female with history of schizophrenia. Patient presented to the ER complaining of hearing voices asking her to kill herself by jumping in front of [employer]. Patient stated that she is seeing female but following her everywhere she go. Patient stated that symptoms been going on for 2 months. PSYCH HPI Patient is a 55-year-old single unemployed, female who resides in a womans retirement with past psychiatric history of depression and anxiety and also substance use specifically cocaine who presents to the ED with complaints of suicidal ideation. Patient states she has been hearing voices and seeing people following her telling her to hurt herself and hence is suicidal. patient states she would like to go to a intermediate care center, endorses to using cocaine just yesterday. The voices are not of familiar people or faces. Pt also reports history of HIV and has been without medications for over 2 months. PAST PSYCHIATRIC HISTORY Diagnoses: depression and anxiety Suicide attempts or Self-harm behavior: Yes Prior psychiatric hospitalizations: Yes Substance Abuse history: cocaine, marijuana and alcohol Previous psychiatric medications tried: abilify and remeron Outpatient treatment: not recently PAST MEDICAL HISTORY: HIV Family Psychiatric History: None reported or documented SOCIAL HISTORY Marital Status: Single Living Arrangements: Homeless Employment Status: Unemployed Access to guns/weapons: Yes Education: History of Abuse: Denies Legal History: Denies REVIEW OF SYSTEMS Constitutional: Negative for weight loss ENT: Negative for stridor Respiratory: Negative for cough or hemoptysis All other systems reviewed and are negative MENTAL STATUS EXAMINATION General Appearance and Behavior: Age appropriate, wearing appropriate clothes, poor eye contact, cooperative Mood: "depressed" Affect and affective range: congruent with mood Thought Process: logical Thought Content: hallucinations. Speech: Normal volume, Regular rate and rhythm Suicidal Ideation: Yes Homicidal Ideation: Denies Homicidal Hallucinations: denies Delusions: None elicited Impulse Control: normal Insight and Judgment: Limited Memory/Cognition: Limited Attention: Normal Orientation: Alert, oriented Assessment (1) Major Depressive Disorder (2) Cocaine Use Disorder (2) Substance Induced Mood Disorder Diagnoses: Treatment Plan MEDICATIONS: Risks, benefits and alternatives of medications discussed with the patient, questions answered and consent obtained from patient. PSYCHOTHERAPY: Supportive psychotherapy provided MEDICAL: Per primary team DELIRIUM PRECAUTIONS: Please re-orient patient frequently, keep lights on during the day, and minimize benzodiazepines and opiates as these medications could worsen patient's confusion. PEANUT SEPARATOR: DISPOSITION: Do Recommend acute inpatient psychiatric hospitalization at this time. Case discussed with Dr. Lundy who agrees with current disposition LEGAL STATUS: 1013 FOLLOW-UP: Will follow Thank you for the consult. Please contact with any questions and/or concerns. Medications and Allergies Allergies Allergy/AdvReac Type Severity Reaction Status Date / Time No Known Allergies Allergy Unverified 08/27/19 03:24 Home Medications Medication Instructions Recorded Confirmed Last Taken Type Acetaminophen [Tylenol] 650 mg PO Q6HR PRN #20 capsule 08/27/19 11/30/19 Unknown Rx Albuterol Sulfate [Proair 90 mcg IH Q6HR PRN #1 aer.pw.bas 08/27/19 11/30/19 Unknown Rx Digihaler] Amoxicillin/Potassium Clav 1 each PO BID #19 tablet 08/27/19 11/30/19 Unknown Rx [Augmentin 875-125 Tablet] Ondansetron (Nf) [Zofran TAB] 4 mg PO Q6HR PRN #10 tablet 08/27/19 11/30/19 Unknown Rx ARIPiprazole [Abilify TAB] 5 mg PO DAILY #30 tab 12/02/[address] [DepaKOTE DR] 125 mg PO BID #30 tablet 12/02/19 Unknown Rx Mirtazapine [Remeron 15mg TAB] 15 mg PO QHS #30 tablet 12/02/19 Unknown Rx Mental Status Exam - Vital signs Last Vital Signs Temp 97.2 F L 07/04/20 22:19 Pulse 81 07/04/20 22:19 Resp 18 07/05/20 01:16 BP 141/79 07/04/20 22:19 Pulse Ox 100 07/04/20 22:19 Results Result Diagrams: 07/04/20 22:46 07/04/20 22:46 Abnormal lab results 07/04/20 07/04/20 07/04/20 Range/Units 22:46 22:46 22:46 WBC 3.8 L (4.5-11.0) K/mm3 RBC 5.30 H (3.65-5.03) M/mm3 Hgb 16.7 H (10.1-14.3) gm/dl Hct 48.6 H (30.3-42.9) % RDW 15.7 H (13.2-15.2) % Lymph % (Auto) 43.6 H (13.4-35.0) % [place] % (Auto) 10.5 H (0.0-7.3) % Seg Neutrophils # 1.6 L (1.8-7.7) K/mm3 Salicylates < 0.3 L (2.8-20.0) mg/dL Acetaminophen 5.0 L (10.0-30.0) ug/mL All other labs normal.
[2020-07-05] MEDS ORDERED: ACETAMINOPHEN 500 MG TAB PO ONE (22:48)
[2020-07-05] MEDS ORDERED: ACETAMINOPHEN 325 MG TAB PO ONE (22:53)
[2020-07-07 09:46] VITALS: BP 117/72
[2020-07-07] MEDS ORDERED: NON-FORMULARY EACH (Albuterol Sulfate [Proair Digihaler] 90 MCG Aer.Pw.Bas) IH PRN (11:28)
[2020-07-07] MEDS ORDERED: NON-FORMULARY EACH (Acetaminophen [Tylenol] 325 MG Capsule) PO PRN (11:28)
[2020-07-07] MEDS ORDERED: LORazepam 2 MG/ML VIAL IM PRN (11:29)
[2020-07-07] MEDS ORDERED: diphenhydrAMINE 25 MG CAP PO PRN (11:29)
--- NOTE | 2020-07-07 11:32 | Event Note ---
Date: 07/07/20 The patient was evaluated in the emergency department for symptoms described in the history of present illness. He/she was evaluated in the context of the global COVID-19 pandemic, which necessitated consideration that the patient might be at risk for infection with the virus that causes COVID-19. Institutional protocols and algorithms that pertain to the evaluation of patients at risk for COVID-19 are in a state of rapid change based on information released by regulatory bodies including the CDC and federal and state organizations. These policies and algorithms were followed during the patient's care in the emergency department. Please note that these policies, procedures and recommendations changed on a rapid basis. Patient resting comfortably in stretcher, and in no acute distress. Pending psychiatric placement at this time. Nursing team reports no issues at this time. 1013 has been requested by the psychiatry team. This has been filled out by myself and ordered. Vital signs, laboratory studies reviewed and appreciated. Vital Signs 07/04/20 07/05/20 07/05/20 22:19 01:16 09:01 Temperature 97.2 F L 98 F Pulse Rate 81 67 Respiratory 18 18 20 Rate Blood Pressure 141/79 Blood Pressure 152/88 [Left] O2 Sat by Pulse 100 97 Oximetry 07/05/20 07/05/20 07/06/20 20:02 20:47 02:00 Temperature 98.6 F 98.2 F Pulse Rate 52 L 59 L Respiratory 16 18 16 Rate Blood Pressure Blood Pressure 143/75 116/65 [Left] O2 Sat by Pulse 98 97 97 Oximetry 07/06/20 07/06/20 07/07/20 11:08 20:10 02:16 Temperature 98.5 F 99.2 F 98.7 F Pulse Rate 66 55 L 52 L Respiratory 20 16 16 Rate Blood Pressure Blood Pressure 150/86 126/60 126/80 [Left] O2 Sat by Pulse 97 96 96 Oximetry 07/07/20 07/07/20 04:48 09:46 Temperature 97.6 F Pulse Rate 64 Respiratory 18 20 Rate Blood Pressure Blood Pressure 117/72 [Left] O2 Sat by Pulse 98 97 Oximetry Lab Results 07/04/20 07/04/20 07/04/20 Range/Units 22:46 22:46 22:46 WBC (4.5-11.0) K/mm3 RBC (3.65-5.03) M/mm3 Hgb (10.1-14.3) gm/dl Hct (30.3-42.9) % MCV (79-97) fl MCH (28-32) pg MCHC (30-34) % RDW (13.2-15.2) % Plt Count (140-440) K/mm3 Lymph % (Auto) (13.4-35.0) % [place] % (Auto) (0.0-7.3) % Eos % (Auto) (0.0-4.3) % Baso % (Auto) (0.0-1.8) % Lymph # (Auto) (1.2-5.4) K/mm3 [place] # (Auto) (0.0-0.8) K/mm3 Eos # (Auto) (0.0-0.4) K/mm3 Baso # (Auto) (0.0-0.1) K/mm3 Seg Neutrophils % (40.0-70.0) % Seg Neutrophils # (1.8-7.7) K/mm3 Sodium 141 (137-145) mmol/L Potassium 4.1 (3.6-5.0) mmol/L Chloride 102.5 (98-107) mmol/L Carbon Dioxide 28 (22-30) mmol/L Anion Gap 15 mmol/L BUN 17 (7-17) mg/dL Creatinine 0.8 (0.6-1.2) mg/dL Estimated GFR > 60 ml/min BUN/Creatinine Ratio 21 % Glucose 70 (65-100) mg/dL Calcium 8.9 (8.4-10.2) mg/dL Urine Color (Yellow) Urine Turbidity (Clear) Urine pH (5.0-7.0) Ur Specific [place] (1.003-1.030) Urine Protein (Negative) mg/dL Urine Glucose (UA) (Negative) mg/dL Urine Ketones (Negative) mg/dL Urine Blood (Negative) Urine Nitrite (Negative) Urine Bilirubin (Negative) Urine Urobilinogen (<2.0) mg/dL Ur Leukocyte Esterase (Negative) Urine WBC (Auto) (0.0-6.0) /HPF Urine RBC (Auto) (0.0-6.0) /HPF U Epithel Cells (Auto) (0-13.0) /HPF Urine Bacteria (Auto) (Negative) /HPF Urine Mucus /HPF Salicylates < 0.3 L (2.8-20.0) mg/dL Urine Opiates Screen Urine Methadone Screen Acetaminophen 5.0 L (10.0-30.0) ug/mL Ur Barbiturates Screen Ur Phencyclidine Scrn Ur Amphetamines Screen U Benzodiazepines Scrn Urine Cocaine Screen U Marijuana (THC) Screen Drugs of Abuse Note Plasma/Serum Alcohol (0-0.07) % Coronavirus (PCR) (Negative) 07/04/20 07/04/20 07/04/20 Range/Units 22:46 22:46 Unknown WBC 3.8 L (4.5-11.0) K/mm3 RBC 5.30 H (3.65-5.03) M/mm3 Hgb 16.7 H (10.1-14.3) gm/dl Hct 48.6 H (30.3-42.9) % MCV 92 (79-97) fl MCH 32 (28-32) pg MCHC 34 (30-34) % RDW 15.7 H (13.2-15.2) % Plt Count 188 (140-440) K/mm3 Lymph % (Auto) 43.6 H (13.4-35.0) % [place] % (Auto) 10.5 H (0.0-7.3) % Eos % (Auto) 2.5 (0.0-4.3) % Baso % (Auto) 0.7 (0.0-1.8) % Lymph # (Auto) 1.6 (1.2-5.4) K/mm3 [place] # (Auto) 0.4 (0.0-0.8) K/mm3 Eos # (Auto) 0.1 (0.0-0.4) K/mm3 Baso # (Auto) 0.0 (0.0-0.1) K/mm3 Seg Neutrophils % 42.7 (40.0-70.0) % Seg Neutrophils # 1.6 L (1.8-7.7) K/mm3 Sodium (137-145) mmol/L Potassium (3.6-5.0) mmol/L Chloride (98-107) mmol/L Carbon Dioxide (22-30) mmol/L Anion Gap mmol/L BUN (7-17) mg/dL Creatinine (0.6-1.2) mg/dL Estimated GFR ml/min BUN/Creatinine Ratio % Glucose (65-100) mg/dL Calcium (8.4-10.2) mg/dL Urine Color Yellow (Yellow) Urine Turbidity Clear (Clear) Urine pH 6.0 (5.0-7.0) Ur Specific [place] 1.024 (1.003-1.030) Urine Protein 30 mg/dl (Negative) mg/dL Urine Glucose (UA) Neg (Negative) mg/dL Urine Ketones Neg (Negative) mg/dL Urine Blood Neg (Negative) Urine Nitrite Neg (Negative) Urine Bilirubin Neg (Negative) Urine Urobilinogen 4.0 (<2.0) mg/dL Ur Leukocyte Esterase Tr (Negative) Urine WBC (Auto) 4.0 (0.0-6.0) /HPF Urine RBC (Auto) 5.0 (0.0-6.0) /HPF U Epithel Cells (Auto) 4.0 (0-13.0) /HPF Urine Bacteria (Auto) 1+ (Negative) /HPF Urine Mucus 2+ /HPF Salicylates (2.8-20.0) mg/dL Urine Opiates Screen Urine Methadone Screen Acetaminophen (10.0-30.0) ug/mL Ur Barbiturates Screen Ur Phencyclidine Scrn Ur Amphetamines Screen U Benzodiazepines Scrn Urine Cocaine Screen U Marijuana (THC) Screen Drugs of Abuse Note Plasma/Serum Alcohol < 0.01 (0-0.07) % Coronavirus (PCR) (Negative) 07/04/20 07/05/20 Range/Units Unknown 10:00 WBC (4.5-11.0) K/mm3 RBC (3.65-5.03) M/mm3 Hgb (10.1-14.3) gm/dl Hct (30.3-42.9) % MCV (79-97) fl MCH (28-32) pg MCHC (30-34) % RDW (13.2-15.2) % Plt Count (140-440) K/mm3 Lymph % (Auto) (13.4-35.0) % [place] % (Auto) (0.0-7.3) % Eos % (Auto) (0.0-4.3) % Baso % (Auto) (0.0-1.8) % Lymph # (Auto) (1.2-5.4) K/mm3 [place] # (Auto) (0.0-0.8) K/mm3 Eos # (Auto) (0.0-0.4) K/mm3 Baso # (Auto) (0.0-0.1) K/mm3 Seg Neutrophils % (40.0-70.0) % Seg Neutrophils # (1.8-7.7) K/mm3 Sodium (137-145) mmol/L Potassium (3.6-5.0) mmol/L Chloride (98-107) mmol/L Carbon Dioxide (22-30) mmol/L Anion Gap mmol/L BUN (7-17) mg/dL Creatinine (0.6-1.2) mg/dL Estimated GFR ml/min BUN/Creatinine Ratio % Glucose (65-100) mg/dL Calcium (8.4-10.2) mg/dL Urine Color (Yellow) Urine Turbidity (Clear) Urine pH (5.0-7.0) Ur Specific [place] (1.003-1.030) Urine Protein (Negative) mg/dL Urine Glucose (UA) (Negative) mg/dL Urine Ketones (Negative) mg/dL Urine Blood (Negative) Urine Nitrite (Negative) Urine Bilirubin (Negative) Urine Urobilinogen (<2.0) mg/dL Ur Leukocyte Esterase (Negative) Urine WBC (Auto) (0.0-6.0) /HPF Urine RBC (Auto) (0.0-6.0) /HPF U Epithel Cells (Auto) (0-13.0) /HPF Urine Bacteria (Auto) (Negative) /HPF Urine Mucus /HPF Salicylates (2.8-20.0) mg/dL Urine Opiates Screen Presumptive negative Urine Methadone Screen Presumptive negative Acetaminophen (10.0-30.0) ug/mL Ur Barbiturates Screen Presumptive negative Ur Phencyclidine Scrn Presumptive negative Ur Amphetamines Screen Presumptive negative U Benzodiazepines Scrn Presumptive negative Urine Cocaine Screen Presumptive positive U Marijuana (THC) Screen Presumptive positive Drugs of Abuse Note Disclamer Plasma/Serum Alcohol (0-0.07) % Coronavirus (PCR) Negative (Negative)
== END 2020-07-07 12:49 ==
LOC: ED 21:49 → EEVIPCON 21:49 → ED 07-07 12:49
DX: F14.10 Cocaine abuse, uncomplicated (principal); R45.851 Suicidal ideations; F25.9 Schizoaffective disorder, unspecified; F12.90 Cannabis use, unspecified, uncomplicated; J44.9 Chronic obstructive pulmonary disease, unspecified; Z21 Asymptomatic human immunodeficiency virus [HIV] infection status; Z79.899 Other long term (current) drug therapy; Z87.891 Personal history of nicotine dependence; Z20.822 Contact with and (suspected) exposure to COVID-19
CPT/HCPCS: 36415; 80048; 80307; 81001; 85025; 99285; J3246; U0003; 80320; G0480

== ENCOUNTER 2021-01-21 12:34 | Emergency (ER) | payer SELFPAY ==
[2021-01-21] MEDS ORDERED: chlordiazePOXIDE 25 MG CAP PO PRN ×2 (15:04)
--- NOTE | 2021-01-21 15:25 | Emergency Department Report ---
HPI - General Chief Complaint: Psych Time Seen by Provider: 01/21/21 14:38 - HPI HPI: 56-year-old -[place] female presents to the emergency department with a complaint of suicidal ideation since this morning with a plan to walk out into traffic. Patient admits to history of bipolar disorder and some medication noncompliance but says that she recently just started back up on medications again. She says that she follows with a "PT clinic on [address]." Patient also admits to history of alcohol dependence and withdrawal and says that she last fountain d alcohol yesterday. She denies any headache, nausea vomiting, hallucinations, chest pain, shortness of breath. ED Past Medical Hx - Past Medical History Hx Psychiatric Treatment: Yes (Schizophrenia) Hx COPD: Yes Hx HIV: Yes - Surgical History Past Surgical History?: No - Social History Smoking Status: Former Smoker Substance Use Type: Alcohol, Cocaine, Marijuana - Medications Home Medications: Home Medications Medication Instructions Recorded Confirmed Last Taken Type Acetaminophen [Tylenol] 650 mg PO Q6HR PRN #20 capsule 08/27/19 11/30/19 Unknown Rx Albuterol Sulfate [Proair 90 mcg IH Q6HR PRN #1 aer.pw.bas 08/27/19 11/30/19 Unknown Rx Digihaler] Amoxicillin/Potassium Clav 1 each PO BID #19 tablet 08/27/19 11/30/19 Unknown Rx [Augmentin 875-125 Tablet] Ondansetron (Nf) [Zofran TAB] 4 mg PO Q6HR PRN #10 tablet 08/27/19 11/30/19 Unknown Rx ARIPiprazole [Abilify TAB] 5 mg PO DAILY #30 tab 12/02/[address] [DepaKOTE DR] 125 mg PO BID #30 tablet 12/02/19 Unknown Rx Mirtazapine [Remeron 15mg TAB] 15 mg PO QHS #30 tablet 12/02/19 Unknown Rx ED Review of Systems ROS: Stated complaint: PSYCH Other details as noted in HPI Comment: All other systems reviewed and negative Constitutional: denies: chills, fever Eyes: denies: eye pain, vision change ENT: denies: ear pain, throat pain Respiratory: denies: cough, shortness of breath Cardiovascular: denies: chest pain, palpitations Gastrointestinal: denies: abdominal pain, vomiting Genitourinary: denies: dysuria, discharge Musculoskeletal: denies: back pain, arthralgia Neurological: denies: headache, weakness Psychiatric: depression, suicidal thoughts. denies: auditory hallucinations, homicidal thoughts Physical Exam - Physical Exam Vital Signs: Vital Signs 01/21/21 01/21/21 12:41 12:46 Temperature 98.0 F Pulse Rate 92 H Respiratory 16 Rate Blood Pressure 101/53 [Right] O2 Sat by Pulse 93 Oximetry Physical Exam: GENERAL: The patient is well-developed well-nourished. HENT: Normocephalic. Atraumatic. Patient has moist mucous membranes. EYES: Extraocular motions are intact. NECK: Supple. Trachea is midline. CHEST/LUNGS: Clear to auscultation. There is no respiratory distress noted. HEART/CARDIOVASCULAR: Regular. There is no tachycardia. There is no murmur. ABDOMEN: Abdomen is soft, nontender. Patient has normal bowel sounds. SKIN: Skin is warm and dry. NEURO: The patient is awake, alert, and oriented. The patient is cooperative. Normal speech. MUSCULOSKELETAL: There is no tenderness or deformity. There is no limitation range of motion. ED Course Vital Signs 01/21/21 01/21/21 12:41 12:46 Temperature 98.0 F Pulse Rate 92 H Respiratory 16 Rate Blood Pressure 101/53 [Right] O2 Sat by Pulse 93 Oximetry ED Medical Decision Making - Lab Data Result diagrams: 01/21/21 15:09 01/21/21 15:09 Lab Results 01/21/21 01/21/21 01/21/21 Range/Units 15:09 15:09 15:09 WBC 4.6 (4.5-11.0) K/mm3 RBC 4.87 (3.65-5.03) M/mm3 Hgb 14.4 H (10.1-14.3) gm/dl Hct 44.3 H (30.3-42.9) % MCV 91 (79-97) fl MCH 30 (28-32) pg MCHC 33 (30-34) % RDW 14.0 (13.2-15.2) % Plt Count 273 (140-440) K/mm3 Lymph % (Auto) 34.0 (13.4-35.0) % [place] % (Auto) 10.5 H (0.0-7.3) % Eos % (Auto) 3.7 (0.0-4.3) % Baso % (Auto) 1.4 (0.0-1.8) % Lymph # (Auto) 1.6 (1.2-5.4) K/mm3 [place] # (Auto) 0.5 (0.0-0.8) K/mm3 Eos # (Auto) 0.2 (0.0-0.4) K/mm3 Baso # (Auto) 0.1 (0.0-0.1) K/mm3 Seg Neutrophils % 50.4 (40.0-70.0) % Seg Neutrophils # 2.3 (1.8-7.7) K/mm3 Sodium 139 (137-145) mmol/L Potassium 4.2 (3.6-5.0) mmol/L Chloride 100.1 (98-107) mmol/L Carbon Dioxide 24 (22-30) mmol/L Anion Gap 19 mmol/L BUN 14 (7-17) mg/dL Creatinine 0.7 (0.6-1.2) mg/dL Estimated GFR > 60 ml/min BUN/Creatinine Ratio 20 % Glucose 78 (65-100) mg/dL Calcium 8.6 (8.4-10.2) mg/dL Total Bilirubin 0.20 (0.1-1.2) mg/dL AST 24 (5-40) units/L ALT 23 (7-56) units/L Alkaline Phosphatase 123 (35-129) units/L Total Protein 7.5 (6.3-8.2) g/dL Albumin 4.1 (3.9-5) g/dL Albumin/Globulin Ratio 1.2 % Urine Color (Yellow) Urine Turbidity (Clear) Urine pH (5.0-7.0) Ur Specific [place] (1.003-1.030) Urine Protein (Negative) mg/dL Urine Glucose (UA) (Negative) mg/dL Urine Ketones (Negative) mg/dL Urine Blood (Negative) Urine Nitrite (Negative) Urine Bilirubin (Negative) Urine Urobilinogen (<2.0) mg/dL Ur Leukocyte Esterase (Negative) Urine WBC (Auto) (0.0-6.0) /HPF Urine RBC (Auto) (0.0-6.0) /HPF U Epithel Cells (Auto) (0-13.0) /HPF Urine Mucus /HPF Urine Opiates Screen Urine Methadone Screen Ur Barbiturates Screen Ur Phencyclidine Scrn Ur Amphetamines Screen U Benzodiazepines Scrn Urine Cocaine Screen U Marijuana (THC) Screen Drugs of Abuse Note Plasma/Serum Alcohol 0.06 (0-0.07) % 01/21/21 01/21/21 Range/Units Unknown Unknown WBC (4.5-11.0) K/mm3 RBC (3.65-5.03) M/mm3 Hgb (10.1-14.3) gm/dl Hct (30.3-42.9) % MCV (79-97) fl MCH (28-32) pg MCHC (30-34) % RDW (13.2-15.2) % Plt Count (140-440) K/mm3 Lymph % (Auto) (13.4-35.0) % [place] % (Auto) (0.0-7.3) % Eos % (Auto) (0.0-4.3) % Baso % (Auto) (0.0-1.8) % Lymph # (Auto) (1.2-5.4) K/mm3 [place] # (Auto) (0.0-0.8) K/mm3 Eos # (Auto) (0.0-0.4) K/mm3 Baso # (Auto) (0.0-0.1) K/mm3 Seg Neutrophils % (40.0-70.0) % Seg Neutrophils # (1.8-7.7) K/mm3 Sodium (137-145) mmol/L Potassium (3.6-5.0) mmol/L Chloride (98-107) mmol/L Carbon Dioxide (22-30) mmol/L Anion Gap mmol/L BUN (7-17) mg/dL Creatinine (0.6-1.2) mg/dL Estimated GFR ml/min BUN/Creatinine Ratio % Glucose (65-100) mg/dL Calcium (8.4-10.2) mg/dL Total Bilirubin (0.1-1.2) mg/dL AST (5-40) units/L ALT (7-56) units/L Alkaline Phosphatase (35-129) units/L Total Protein (6.3-8.2) g/dL Albumin (3.9-5) g/dL Albumin/Globulin Ratio % Urine Color Yellow (Yellow) Urine Turbidity Slightly-cloudy (Clear) Urine pH 5.0 (5.0-7.0) Ur Specific [place] 1.025 (1.003-1.030) Urine Protein <15 mg/dl (Negative) mg/dL Urine Glucose (UA) Neg (Negative) mg/dL Urine Ketones Neg (Negative) mg/dL Urine Blood Neg (Negative) Urine Nitrite Neg (Negative) Urine Bilirubin Neg (Negative) Urine Urobilinogen 2.0 (<2.0) mg/dL Ur Leukocyte Esterase Neg (Negative) Urine WBC (Auto) 11.0 H (0.0-6.0) /HPF Urine RBC (Auto) 2.0 (0.0-6.0) /HPF U Epithel Cells (Auto) 16.0 H (0-13.0) /HPF Urine Mucus 1+ /HPF Urine Opiates Screen Negative Urine Methadone Screen Negative Ur Barbiturates Screen Negative Ur Phencyclidine Scrn Negative Ur Amphetamines Screen Negative U Benzodiazepines Scrn Negative Urine Cocaine Screen Positive U Marijuana (THC) Screen Negative Drugs of Abuse Note Disclamer Plasma/Serum Alcohol (0-0.07) % - Medical Decision Making This bipolar patient presents to the emergency department with suicidal ideations with a plan to walk out of her traffic. For this reason the patient h as been made a 1013 and placed on ED hold. Labs have been mostly unremarkable except for UDS positive for cocaine. Vital signs stable throughout her ED course. She was seen by the psychiatric team who agreed with the plan for inpatient stabilization. We will continue to monitor during her ED course but she is medically cleared for psychiatric placement. Critical Care Time: No Critical care attestation.: If time is entered above; I have spent that time in minutes in the direct care of this critically ill patient, excluding procedure time. ED Disposition Clinical Impression: Suicidal ideations Disposition: [address] [place] [address] Is pt being admited?: No Condition: Stable Time of Disposition: 11:30
[2021-01-21 15:27] LABS: Basophils # (Auto) 0.1 K/mm3 (0.0-0.1); Basophils % (Auto) 1.4 % (0.0-1.8); Eosinophils # (Auto) 0.2 K/mm3 (0.0-0.4); Eosinophils % (Auto) 3.7 % (0.0-4.3); Hemoglobin 14.4 gm/dl (10.1-14.3); Lymphocytes # (Auto) 1.6 K/mm3 (1.2-5.4); Monocytes # (Auto) 0.5 K/mm3 (0.0-0.8); Monocytes % (Auto) 10.5 % (0.0-7.3)
[2021-01-21 15:41] LABS: Alanine Aminotransferase 23 units/L (7-56); Albumin 4.1 g/dL (3.9-5); Blood Urea Nitrogen 14 mg/dL (7-17); Calcium 8.6 mg/dL (8.4-10.2); Hemolysis Index 34
[2021-01-21 15:47] LABS: BUN/Creatinine Ratio 20
[2021-01-21 16:07] LABS: Hematocrit 44.3 % (30.3-42.9); Mean Corpuscular HGB Conc 33 % (30-34); Mean Corpuscular Volume 91 fl (79-97); Platelet Count 273 K/mm3 (140-440); Red Blood Count 4.87 M/mm3 (3.65-5.03)
[2021-01-22 04:46] LABS: Amphetamine Screen,Urine Negative; Benzodiazepines Screen,Urine Negative; Bilirubin,Urine NEG (Negative); Blood,Urine NEG (Negative); Cannabinoid Screen,Urine Negative; Color,Urine Yellow (Yellow); Methadone Screen,Urine Negative; Mucus,Urine 1+ /HPF; Opiate Screen,Urine Negative; Protein,Urine <15 mg/dL mg/dL (Negative)
[2021-01-22 05:00] LABS: Cocaine Screen,Urine Positive
[2021-01-22 06:55] VITALS: BP 101/60
--- NOTE | 2021-01-22 09:39 | Consultation ---
History of Present Illness - Reason for Consult Consult date: 01/22/21 Reason for consult: SI, substance abuse - History of Present Psychiatric Illness The patient was seen today. She endorses SI with a plan to jump in front of [place] train. She says she has a history of schizophrenia and HIV. The patient says she is depressed and needs treatment for crack and alcohol dependence. She says she's been off her meds for awhile. The patient denies hallucinations. PAST PSYCHIATRIC HISTORY Diagnoses: Schizophrenia Suicide attempts or Self-harm behavior: Yes, cut own lips Prior psychiatric hospitalizations: Yes Substance Abuse history: crack, and alcohol Previous psychiatric medications tried: did not recall Outpatient treatment: not presently PAST MEDICAL HISTORY: Family Psychiatric History: Not available SOCIAL HISTORY Marital Status: Single Living Arrangements: homeless Employment Status: unemployed Access to guns/weapons: None reported Education: History of Abuse: None reported Legal History: None reported REVIEW OF SYSTEMS Constitutional: Negative for weight loss ENT: Negative for stridor Respiratory: Negative for cough or hemoptysis All other systems reviewed and are negative MENTAL STATUS EXAMINATION General Appearance and Behavior: Age appropriate, good hygiene, wearing appropriate clothes, poor eye contact, irritable Cooperation: Participating/engaged Psychomotor Behavior: unremarkable and within normal limits Mood: depressed Affect and affective range: congruent with mood Thought Process: Goal directed Thought Content: suicidal Speech: Normal volume, Regular rate and rhythm Suicidal Ideation: Yes, with plan Homicidal Ideation: Denies Hallucinations: Denies Impulse Control: Unimpaired Insight and Judgment: Normal insight and judgment Memory: Normal Attention: Divided Orientation: Alert, oriented Assessment and Plan (1) Schizophrenia (2) Cocaine Dependence (3) Alcohol Dependence RECOMMENDATIONS 1013 Agree with CIWA Start Depakote DR 125mg po BID Start Abilify 5mg po daily Start Remeron 15mg po qhs Risks, benefits and alternatives of medications discussed with the patient, questions answered and consent obtained from patient. PSYCHOTHERAPY: Supportive psychotherapy provided MEDICAL: Per primary team DELIRIUM PRECAUTIONS: Please re-orient patient frequently, keep lights on during the day, and minimize benzodiazepines and opiates as these medications could worsen patient's confusion. FEATURE WRITER: Per medical team DISPOSITION: Recommend acute inpatient psychiatric hospitalization at this time. FOLLOW-UP: Will follow. Thank you for the consult. Please contact with any questions and/or concerns. Medications and Allergies Allergies Allergy/AdvReac Type Severity Reaction Status Date / Time No Known Allergies Allergy Verified 01/21/21 12:36 Home Medications Medication Instructions Recorded Confirmed Last Taken Type Acetaminophen [Tylenol] 650 mg PO Q6HR PRN #20 capsule 08/27/19 11/30/19 Unknown Rx Albuterol Sulfate [Proair 90 mcg IH Q6HR PRN #1 aer.pw.bas 08/27/19 11/30/19 Unknown Rx Digihaler] Amoxicillin/Potassium Clav 1 each PO BID #19 tablet 08/27/19 11/30/19 Unknown Rx [Augmentin 875-125 Tablet] Ondansetron (Nf) [Zofran TAB] 4 mg PO Q6HR PRN #10 tablet 08/27/19 11/30/19 Unknown Rx ARIPiprazole [Abilify TAB] 5 mg PO DAILY #30 tab 12/02/[address] [DepaKOTE DR] 125 mg PO BID #30 tablet 12/02/19 Unknown Rx Mirtazapine [Remeron 15mg TAB] 15 mg PO QHS #30 tablet 12/02/19 Unknown Rx Active Meds: Active Medications Chlordiazepoxide HCl (Chlordiazepoxide 25 Mg Cap) 50 mg PO Q1HR PRN PRN Reason: CIWA-Ar 8-15 Chlordiazepoxide HCl (Chlordiazepoxide 25 Mg Cap) 100 mg PO Q1HR PRN PRN Reason: CIWA-Ar 16-25 Mental Status Exam - Vital signs Last Vital Signs Temp 97.3 F L 01/22/21 06:54 Pulse 72 01/22/21 06:54 Resp 18 01/22/21 06:54 BP 101/60 01/22/21 06:54 Pulse Ox 95 01/22/21 06:54 Results Result Diagrams: 01/21/21 15:09 01/21/21 15:09 Abnormal lab results 01/21/21 01/21/21 Range/Units 15:09 Unknown Hgb 14.4 H (10.1-14.3) gm/dl Hct 44.3 H (30.3-42.9) % Emmons % (Auto) 10.5 H (0.0-7.3) % Urine WBC (Auto) 11.0 H (0.0-6.0) /HPF U Epithel Cells (Auto) 16.0 H (0-13.0) /HPF All other labs normal.
[2021-01-22] MEDS ORDERED: ARIPiprazole 5 MG TAB PO SCH (10:00)
[2021-01-22] MEDS ORDERED: DIVALPROEX DR 125 MG TAB PO SCH (10:00)
--- NOTE | 2021-01-22 10:31 | Emergency Department Report ---
Blank Doc - Documentation Documentation: Patient is resting this morning with no specific complaints. Labs have been r eviewed. Psychiatric services has seen the patient and recommends admission. We will await accepting facility.
--- NOTE | 2021-01-22 12:27 | Event Note ---
Date: 01/22/21 The patient stopped me in the [place] after returning to the unit to speak with another patient. She refused her COVID vaccine and her medications. She says she is not taking them. She says "I don't want those [place] seeing me." She says she feels much better and is no longer suicidal. The patient says "I was really here for rehab. I can manage with some resources." See updated recommendations: RECOMMENDATIONS d/c 1013 The patient to follow up with outpatient about meds. Refused them here. Risks, benefits and alternatives of medications discussed with the patient, questions answered and consent obtained from patient. PSYCHOTHERAPY: Supportive psychotherapy provided MEDICAL: Per primary team DELIRIUM PRECAUTIONS: Please re-orient patient frequently, keep lights on during the day, and minimize benzodiazepines and opiates as these medications could worsen patient's confusion. CERTIFIED TECHNICIAN: Per medical team DISPOSITION: Do not recommend acute inpatient psychiatric hospitalization at this time. FOLLOW-UP: Will sign off. Thanks The hide cooking operator to further discuss safety plan and give the patient outpatient resources for med management, CBT and rehab The patient to abstain from all illicit substances and alcohol. She is too follow up in 7 to 14 days upon discharge Thank you for the consult. Please contact with any questions and/or concerns. Case staffed with Dr. Lundy
[2021-01-22] MEDS ORDERED: MIRTAZAPINE 15 MG TAB PO SCH (22:00)
== END 2021-01-22 15:12 | disposition home or self-care (01) ==
LOC: ED 12:34
DX: R45.851 Suicidal ideations (principal); F20.9 Schizophrenia, unspecified; Z87.891 Personal history of nicotine dependence; Z79.899 Other long term (current) drug therapy; F12.90 Cannabis use, unspecified, uncomplicated; F10.20 Alcohol dependence, uncomplicated
CPT/HCPCS: 36415; 80053; 80307; 80320; 81001; 85025; 87086; 99284; 99285; G0480

== ENCOUNTER 2021-04-16 18:46 | Emergency (ER) | payer SELFPAY | END 2021-04-16 19:30 | disposition left against medical advice (07) | LOC: ED 18:46 | DX: Z13.30 Encounter for screening examination for mental health and behavioral disorders, unspecified (principal); Z53.21 Procedure and treatment not carried out due to patient leaving prior to being seen by health care provider ==